=== PATIENT | male | born 1990 | race Two or more races ===

== ENCOUNTER 2024-08-31 10:50 | Outpatient (OUT) | payer BC, SELFPAY ==
--- NOTE | 2024-08-31 11:10 | ECG_ITS ---
[facility] Test Date: 2024-08-31 Pat Name: SANDIP KIM Department: Room: - Gender: Male [employer] Professional: : 1990 Requested By: Order Number: [id number] Reading MD: TOÑO PYLE Measurements Intervals Given Rate: 67 P: 24 FL: 168 QRS: 68 QRSD: 92 T: 39 QT: 362 QTc: 383 Interpretive Statements SINUS RHYTHM ST ELEVATION, PROBABLY EARLY REPOLARIZATION [ST ELEVATION WITH NORMALLY INFLECTED T WAVE] WARNING: DATA QUALITY MAY AFFECT INTERPRETATION No previous ECG available for comparison Electronically Signed On 08-31-2024 23:03:41 EDT by TOÑO PYLE
--- NOTE | 2024-08-31 11:43 | XR_ITS ---
The [address] [address] Patient Name: SANDIP KIM MRN: [id number] date: 1990 Sex: M Assigned Patient Location: [facility] Current Patient Location: Accession/Order Number: [id number] Exam Date: 08/31/2024 12:05 Report Date: 09/02/2024 08:55 At the request of: NAOMI AKERS Procedure: XR chest 2V EXAMINATION: XR chest 2V HISTORY: VAPING COMPARISON: No relevant comparison available. TECHNIQUE: PA and lateral FINDINGS: LUNGS: No significant pulmonary parenchymal abnormalities. VASCULATURE: No increased pulmonary vasculature. PLEURA: No pneumothorax, effusion, or pleural thickening. CARDIAC: No cardiomegaly or cardiac silhouette abnormality. MEDIASTINUM: No visible mass or adenopathy. BONES: No fracture or visible bone lesion. OTHER: Negative. XR/XR chest 2V IMPRESSION: No acute radiographic abnormality Electronically authenticated by: JEAN-PAUL PARRA Date: 09/02/2024 08:55
[2024-08-31 12:02] LABS: Hematocrit 46.6 % (42.0-54.0); Hemoglobin 15.6 g/dL (14.0-18.0); Mean Corpuscular HGB Conc 33.5 g/dL (29.9-35.2); Mean Corpuscular Hemoglobin 29.4 pg (25.9-34.0); Mean Corpuscular Volume 87.9 fL (80.0-94.0); Platelet Count 307 10^3/uL (150-450); Red Cell Distribution Width 12.5 % (11.0-15.0); White Blood Count 12.5 10^3/uL (4.0-11.0)
--- NOTE | 2024-08-31 12:04 | PM.PRESUREVA ---
History of Present Illness History of Present Illness Chief complaint: ureteral and kidney stones Narrative: Patient presents for preadmission testing. The patient reports he was evaluated for kidney stones in the ER at the end of June, and he is now scheduled for a procedure for his stones. He states since June, he has not had any episodes of flank pain, hematuria, nausea, vomiting, or any other complaints. He has finished his Flomax and is not currently taking any medications. Review of Systems ROS Narrative REVIEW OF SYSTEMS: Negative except as stated in HPI, ten or more systems reviewed. Constitutional: No fever, chills, weakness ENT: No sore throat or epistaxis Cardiovascular: No edema, chest pain, palpitations, or activity intolerance Respiratory: No shortness of breath, cough, or wheezing Musculoskeletal: No joint pain or swelling Gastrointestinal: No abdominal pain, constipation, diarrhea, or vomiting Genitourinary: No dysuria or hematuria Neurological: No numbness, tingling, weakness, or headache Psychiatric: No mood changes PFSH PFSH Medical History (Updated 08/31/24 @ 12:06 by Sol Hernadez NP) Ureteral stone with hydronephrosis ?N13.2 - Hydronephrosis with renal and ureteral calculous obstruction (ICD-10) Back pain ?M54.9 - Dorsalgia, unspecified (ICD-10) Electronic cigarette use ?Z78.9 - Other specified health status (ICD-10) Bronchitis ?J40 - Bronchitis, not specified as acute or chronic (ICD-10) Kidney stones ?N20.0 - Calculus of kidney (ICD-10) Elevated blood pressure reading in office without diagnosis of hypertension ?R03.0 - Elevated blood-pressure reading, without diagnosis of hypertension (ICD-10) Surgical History (Updated 08/31/24 @ 11:56 by Sol Hernadez NP) H/O lymph node excision ?Z98.890 - Other specified postprocedural states (ICD-10) History of tonsillectomy ?Z90.89 - Acquired absence of other organs (ICD-10) H/O microdiscectomy ?Z98.890 - Other specified postprocedural states (ICD-10) History of arthroscopy of knee ?Z98.890 - Other specified postprocedural states (ICD-10) Family History (Updated 08/31/24 @ 11:41 by Sol Hernadez NP) Other Cancer Family history of diabetes mellitus Pacemaker Social History (Updated 08/31/24 @ 11:34 by Sol Hernadez NP) Within the past year, how often did you have a drink containing alcohol: monthly or less Smoking status: Current some day smoker Do you use any of these nicotine containing products: vaping products Non-prescribed substance use: denies use 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 Highest level of school completed/degree received: some college, no degree Meds Home Medications and Allergies Home Medications ?Medication ?Instructions ?Recorded ?Confirmed ?Type No Known Home Medications 08/31/24 08/31/24 History Allergies Allergy/AdvReac Type Severity Reaction Status Date / Time No Known Drug Allergies Allergy Verified 08/31/24 11:32 Exam Narrative Exam Narrative: Constitutional: Awake, alert, comfortable, well-appearing, nontoxic, interactive, vital signs as charted Head: Normocephalic, atraumatic Neck: Supple, normal appearance, normal range of motion, no meningeal signs, no lymphadenopathy Respiratory: No respiratory distress, breath sounds clear Cardiovascular: Regular rate and rhythm, strong and regular heart tones Abdomen: Nontender, normal bowel sounds, soft, no CVA tenderness Musculoskeletal: Normal gait, no swelling or edema Skin: No rashes or induration, no lesions, only visible skin inspected Neuro: No neurological deficits, normal sensation Psychiatric: Oriented ?3, normal affect Assessment and Plan Assessment and Plan (1) Kidney stones: (2) Ureteral stone with hydronephrosis: Plan Left ESWL, possible cystoscopy, laser lithotripsy, left retrograde pyelogram, left stent placement scheduled with Dr. Angulo September 15, 2024.
[2024-08-31 12:16] LABS: INR 0.98; Partial Thromboplastin Time 31.8 sec (22.3-36.2); Prothrombin Time 10.4 sec (9.0-11.6)
[2024-08-31 12:23] LABS: Segmented Neut Absolute Manual 7.62 10^3/uL (1.4-6.5)
[2024-08-31 12:24] LABS: Atypical Lymphocytes Abs Man 1.25; Eosinophils Absolute Manual 0.37 10^3/uL (0.00-0.70); Lymphocytes Absolute Manual 2.75 10^3/uL (1.20-3.80)
[2024-08-31 13:00] LABS: Anion Gap 14.4; BUN Creatinine Ratio 10.4; Calcium 9.7 mg/dL (8.5-10.1); Carbon Dioxide 28.6 mmol/L (21.0-32.0); Chloride 104 mmol/L (98-107); Estimated GFR (African America >60 (>=60 mL/min/1.73m^2); Estimated GFR (Non-African Ame >60 (>=60 mL/min/1.73m^2); Glucose 111 mg/dL (74-106); Sodium 143 mmol/L (136-145)
== END 2024-08-31 10:51 | disposition home or self-care (01) ==
LOC: PST 10:57
PROVIDERS: Visit Provider Urology
DX: Z01.810 Encounter for preprocedural cardiovascular examination (principal); Z01.812 Encounter for preprocedural laboratory examination; Z01.818 Encounter for other preprocedural examination; N20.0 Calculus of kidney; N20.1 Calculus of ureter; N13.30 Unspecified hydronephrosis
CPT/HCPCS: 36415; 71046; 80048; 85007; 85027; 85610; 85730; 87086; 93005; G0463